=== PATIENT | male | born 1950 | race Caucasian/White ===

== ENCOUNTER 2020-05-15 11:19 | Emergency (ER) | payer MEDICARE ==
[~2020-05-15] VITALS: Ht 174 cm; Wt 65.0 kg
[~2020-05-15 11:19] MED LIST: ACYCLOVIR400 MG PO; AMLODIPINE5 MG PO; CEPHALEXIN500 MG OR; HYDROCHLOR12.5 MG/CA PO; LORTAB5 PO; METHYLPRED4 MG PO; SIMVASTATIN10 MG PO; TRAZODONE50 MG PO
[2020-05-15] MEDS ORDERED: SPIRIVA HANDIH18 MCG (11:56)
[2020-05-15] MEDS ORDERED: ASPIRIN 81 LOW81 MG PO (11:57)
[2020-05-15] MEDS ORDERED: DEXAMETHASON2 MG PO (11:58)
[2020-05-15 12:07] LABS: IMMATURE GRANULOCYTES 0.6 % (0.0-5.0); MEAN CELL VOLUME 103.7 fL CALC (80.0-100.0); MEAN CORPUSCULAR HGB 34.2 pG CALC (26.0-32.0); NEUT# 6.84 thou/uL (1.82-7.42); RED BLOOD COUNT 4.06 mill/uL (4.70-6.10); RED CELL DISTRI WIDTH 14.2 % (11.5-15.5)
[2020-05-15 12:12] LABS: HEMATOCRIT 42.1 % (39.0-50.0); HEMOGLOBIN 13.9 g/dl (14.0-18.0)
[2020-05-15 12:23] LABS: ALKALINE PHOSPHATASE 60 u/l (38-126); BILIRUBIN, TOTAL 0.9 mg/dL (0.0-1.4); BUN 15 mg/dL (8-23); BUN/CREATININE RATIO 21 (12-20 (CALC)); CARBON DIOXIDE 30 mmol/l (22-30); CHLORIDE 102 mmol/l (95-108); CREATININE 0.7 mg/dL (0.7-1.3); GFR > 60 ML/MIN (>=60 (CALC)); GFR FOR AFR.AMER. > 60 ML/MIN (>=60 (CALC)); SGOT/AST 17 u/l (19-48); SODIUM 136 mmol/l (137-146)
[2020-05-15 12:25] LABS: ANION GAP 8 (6-22 (CALC)); POTASSIUM 3.5 mmol/l (3.5-5.1); TOTAL PROTEIN 6.7 g/dL (6.3-8.2)
[2020-05-15 13:32] LABS: URINE BILIRUBIN - DIPSTICK NEGATIVE (NEGATIVE); URINE BLOOD DIPSTICK NEGATIVE (NEGATIVE); URINE COLOR YELLOW; URINE GLUCOSE - DIPSTICK NEGATIVE (NEGATIVE); URINE KETONE NEGATIVE (NEGATIVE); URINE LEUK ESTERASE NEGATIVE (NEGATIVE); URINE NITRITE - DIPSTICK NEGATIVE (Negative); URINE PH 6.5 (4.5-8.0); URINE PROTEIN - DIPSTICK NEGATIVE (NEG-TRACE); URINE UROBILINOGEN - DIPSTICK 0.2 E.U./dL (0.2)
[2020-05-15 15:06] VITALS: BP 102/69
== END 2020-05-15 14:52 | disposition short-term general hospital (02) ==
LOC: ED 11:19
DX: I71.4 Abdominal aortic aneurysm, without rupture (principal); F03.90 Unspecified dementia, unspecified severity, without behavioral disturbance, psychotic disturbance, mood disturbance, and anxiety; I10 Essential (primary) hypertension; I25.10 Atherosclerotic heart disease of native coronary artery without angina pectoris; C90.00 Multiple myeloma not having achieved remission; F17.200 Nicotine dependence, unspecified, uncomplicated; Z20.828 Contact with and (suspected) exposure to other viral communicable diseases
CPT/HCPCS: Q9967

== ENCOUNTER 2020-05-24 08:41 | Emergency (ER) | payer OTHER, MEDICARE ==
[~2020-05-24] VITALS: Ht 174 cm; Wt 63.6 kg
[~2020-05-24 08:41] MED LIST changes: +ASPIRIN 81 LOW81 MG PO; +DEXAMETHASON2 MG PO; +SPIRIVA HANDIH18 MCG
[2020-05-24] MEDS ORDERED: BUSPAR5 M1 PO (08:56)
[2020-05-24] MEDS ORDERED: SPIRIVA RE1.25 MCG/A (08:57)
[2020-05-24] MEDS ORDERED: ZOCOR10 MG PO (08:57)
[2020-05-24 09:14] LABS: HEMATOCRIT 40.1 % (39.0-50.0); HEMOGLOBIN 13.1 g/dl (14.0-18.0); IMMATURE GRANULOCYTES 2.7 % (0.0-5.0); MEAN CELL VOLUME 105.8 fL CALC (80.0-100.0); MEAN CORPUSCULAR HGB 34.6 pG CALC (26.0-32.0); MEAN CORPUSCULAR HGB CONC 32.7 g/dL CAL (32.0-36.0); NEUT# 9.6 thou/uL (1.82-7.42); RED BLOOD COUNT 3.79 mill/uL (4.70-6.10); RED CELL DISTRI WIDTH 14.6 % (11.5-15.5)
[2020-05-24 09:31] LABS: ALBUMIN 3.8 g/dL (3.2-5.0); ALKALINE PHOSPHATASE 65 u/l (38-126); ANION GAP 10 (6-22 (CALC)); BILIRUBIN, TOTAL 0.7 mg/dL (0.0-1.4); BUN 18 mg/dL (8-23); BUN/CREATININE RATIO 29 (12-20 (CALC)); CARBON DIOXIDE 25 mmol/l (22-30); CHLORIDE 106 mmol/l (95-108); CREATININE 0.6 mg/dL (0.7-1.3); GFR > 60 ML/MIN (>=60 (CALC)); GFR FOR AFR.AMER. > 60 ML/MIN (>=60 (CALC)); POTASSIUM 4.1 mmol/l (3.5-5.1); SGOT/AST 17 u/l (19-48); SODIUM 137 mmol/l (137-146)
[2020-05-24 10:03] VITALS: BP 101/57
== END 2020-05-24 10:10 | disposition home or self-care (01) | DRG 948 ==
LOC: ED 08:41
PROVIDERS: Family Medicine
DX: R60.9 Edema, unspecified (principal); I10 Essential (primary) hypertension; F03.90 Unspecified dementia, unspecified severity, without behavioral disturbance, psychotic disturbance, mood disturbance, and anxiety; I25.10 Atherosclerotic heart disease of native coronary artery without angina pectoris; I71.4 Abdominal aortic aneurysm, without rupture; F17.210 Nicotine dependence, cigarettes, uncomplicated

== ENCOUNTER 2020-06-09 11:25 | Emergency (ER) | payer OTHER, MEDICARE ==
[~2020-06-09] VITALS: Ht 174 cm; Wt 72.7 kg
[~2020-06-09 11:25] MED LIST changes: +BUSPAR5 M1 PO; +SPIRIVA RE1.25 MCG/A; +ZOCOR10 MG PO
[2020-06-09] MEDS ORDERED: ACYCLOVIR400 MG PO (11:48)
[2020-06-09] MEDS ORDERED: LASIX20 MG PO (11:49)
[2020-06-09] MEDS ORDERED: REVLIMID PO (11:51)
[2020-06-09] MEDS ORDERED: KLOR-CON SPRIN10 MEQ PO (11:51)
[2020-06-09 12:33] LABS: HEMATOCRIT 42.3 % (39.0-50.0); HEMOGLOBIN 13.8 g/dl (14.0-18.0); IMMATURE GRANULOCYTES 0.3 % (0.0-5.0); MEAN CELL VOLUME 107.1 fL CALC (80.0-100.0); MEAN CORPUSCULAR HGB 34.9 pG CALC (26.0-32.0); MEAN CORPUSCULAR HGB CONC 32.6 g/dL CAL (32.0-36.0); NEUT# 5.54 thou/uL (1.82-7.42); RED BLOOD COUNT 3.95 mill/uL (4.70-6.10); RED CELL DISTRI WIDTH 14.4 % (11.5-15.5)
[2020-06-09 12:53] LABS: ALBUMIN 3.8 g/dL (3.2-5.0); ALKALINE PHOSPHATASE 62 u/l (38-126); ANION GAP 9 (6-22 (CALC)); BILIRUBIN, TOTAL 1.2 mg/dL (0.0-1.4); BUN 24 mg/dL (8-23); BUN/CREATININE RATIO 27 (12-20 (CALC)); CARBON DIOXIDE 29 mmol/l (22-30); CHLORIDE 102 mmol/l (95-108); CREATININE 0.9 mg/dL (0.7-1.3); GFR > 60 ML/MIN (>=60 (CALC)); GFR FOR AFR.AMER. > 60 ML/MIN (>=60 (CALC)); POTASSIUM 3.2 mmol/l (3.5-5.1); SGOT/AST 23 u/l (19-48); SODIUM 137 mmol/l (137-146); TOTAL PROTEIN 6.4 g/dL (6.3-8.2)
[2020-06-09 12:56] LABS: URINE BILIRUBIN - DIPSTICK NEGATIVE (NEGATIVE); URINE BLOOD DIPSTICK NEGATIVE (NEGATIVE); URINE COLOR YELLOW; URINE GLUCOSE - DIPSTICK NEGATIVE (NEGATIVE); URINE KETONE NEGATIVE (NEGATIVE); URINE LEUK ESTERASE NEGATIVE (NEGATIVE); URINE NITRITE - DIPSTICK NEGATIVE (Negative); URINE PROTEIN - DIPSTICK NEGATIVE (NEG-TRACE); URINE SPECIFIC GRAVITY 1.015; URINE UROBILINOGEN - DIPSTICK 0.2 E.U./dL (0.2)
[2020-06-09 13:04] LABS: MYOGLOBIN 32 ng/mL (0 - 121)
[2020-06-09 14:05] VITALS: BP 107/69
== END 2020-06-09 14:05 | disposition home or self-care (01) | DRG 884 ==
LOC: ED 11:25
PROVIDERS: Emergency Medicine
DX: F03.91 Unspecified dementia, unspecified severity, with behavioral disturbance (principal); I10 Essential (primary) hypertension; I25.10 Atherosclerotic heart disease of native coronary artery without angina pectoris; I71.4 Abdominal aortic aneurysm, without rupture; F17.200 Nicotine dependence, unspecified, uncomplicated; Z85.830 Personal history of malignant neoplasm of bone

== ENCOUNTER 2020-07-11 18:58 | Observation (INO) | payer OTHER, MEDICARE ==
[~2020-07-11] VITALS: Ht 175.3 cm; Wt 66.9 kg
[~2020-07-11 18:58] MED LIST changes: +KLOR-CON SPRIN10 MEQ PO; +LASIX20 MG PO; +REVLIMID PO
--- NOTE | 2020-07-11 18:58 | NUR ---
PT ARRIVED BY EMS AND IS ALERT BUT NOT ORIENTED.
--- NOTE | 2020-07-11 19:12 | NUR ---
SPOKE WITH PATIENT'S STEP DAUGHTER. SHE STATES TONIGHT THE PATIENT TOOK A ROPE AND WAS HEADED OUTSIDE TO HANG HIMSELF, SO FAMILY CALLED 911. INFORMED STEO DAUGHTER THAT HE IS CURRENTLY NOT TALKING TO STAFF. STEP DAUGHTER STATES HE NORMALLY CAN TALK AND WAS TALKING WITH EMS PRIOR TO LEAVING HOUSE. SHE STATES HE HAS HAD EPISODES SINCE THE BEGINNING OF THE YEAR OF HAVING TROUBLE GETTING HIS WORDS OUT AND GETTING FRUSTRATED. STATES HE AMBULATES WITHOUT ASSIST.
[2020-07-11 19:47] LABS: HEMATOCRIT 38.9 % (39.0-50.0); HEMOGLOBIN 12.5 g/dl (14.0-18.0); IMMATURE GRANULOCYTES 0.3 % (0.0-5.0); MEAN CELL VOLUME 111.1 fL CALC (80.0-100.0); MEAN CORPUSCULAR HGB 35.7 pG CALC (26.0-32.0); MEAN CORPUSCULAR HGB CONC 32.1 g/dL CAL (32.0-36.0); NEUT# 6.33 thou/uL (1.82-7.42); RED BLOOD COUNT 3.5 mill/uL (4.70-6.10); RED CELL DISTRI WIDTH 13.2 % (11.5-15.5)
[2020-07-11 19:53] LABS: GFR > 60 ML/MIN (>=60 (CALC)); GFR FOR AFR.AMER. > 60 ML/MIN (>=60 (CALC))
--- NOTE | 2020-07-11 20:00 | NUR ---
PULLING OFF WIRES DESPITE REMINDING CONSTANTLY
[2020-07-11 20:08] LABS: ACT PARTIAL THROMBO TIME 25.3 SECONDS (20.0-32.5); ALBUMIN 3.2 g/dL (3.2-5.0); ALKALINE PHOSPHATASE 56 u/l (38-126); ANION GAP 7 (6-22 (CALC)); BUN 14 mg/dL (8-23); BUN/CREATININE RATIO 20 (12-20 (CALC)); CARBON DIOXIDE 30 mmol/l (22-30); CHLORIDE 106 mmol/l (95-108); CREATININE 0.7 mg/dL (0.7-1.3); ETHYL ALCOHOL 0 mg/dl (0-30); GFR > 60 ML/MIN (>=60 (CALC)); GFR FOR AFR.AMER. > 60 ML/MIN (>=60 (CALC)); INTERNATIONAL NORMALIZED RATIO 1.1 RATIO (0.7-1.3); LIPASE 150 u/l (23-300); POTASSIUM 3.8 mmol/l (3.5-5.1); SGOT/AST 18 u/l (19-48); SODIUM 139 mmol/l (137-146); TOTAL PROTEIN 5.7 g/dL (6.3-8.2)
[2020-07-11 20:10] LABS: BILIRUBIN, TOTAL 0.5 mg/dL (0.0-1.4)
[2020-07-11 20:19] LABS: MYOGLOBIN 27 ng/mL (0 - 121)
--- NOTE | 2020-07-11 20:45 | NUR ---
SITTER AT BEDSIDE.
--- NOTE | 2020-07-11 21:30 | NUR ---
FAMILY AT BEDSIDE.
--- NOTE | 2020-07-11 22:06 | NUR ---
Admission Note Report Given to: YUMI MCKEE Transported by: Wheelchair X Stretcher Transported with: X Nurse Transporter X Patent IV O2 X Route Delivery Manager Location: X ICU [facility]
[2020-07-11 22:15] VITALS: BP 100/72
--- NOTE | 2020-07-11 22:15 | NUR ---
PATIENT ARRIVES VIA WHEELCHAIR ACCOMPANIED BY ER NURSE BANDAR. PT NEEDS REPETITIVE DIRECTIONS. PT WAS ABLE TO TRANSFER TO THE BED WITH STANDBY ASSIST AND REPETITIVE DIRECTION AND ASSURANCE. NIH PERFORMED AND PT DOES NOT THOROUGHLY FOLLOW ALL DIRECTIONS, UNABLE TO PERFORM ALL OF TEST. SCORED FOR WRONG MONTH AND AGE, PT IS ORIENTED TO HIS NAME AND ONLY. RAC IV X1 INTACT. AFEBRILE, BP WNL, SR ON TELEMETRY, O2 SAT 98% ON RA, NO SOB NOTED. SITTER AT BEDSIDE, PATIENT ABLE TO SWALLOW WATER WITHOUT DIFFICULTY, SANDWICH AND ALFRED RIINA PROVIDED.
[2020-07-11 22:45] VITALS: BP 113/75
--- NOTE | 2020-07-11 22:51 | NUR ---
NO STROKE ORDER SET PER DR HUA.
--- NOTE | 2020-07-11 23:11 | NUR ---
PT ABLE TO TOLERATE LOVENOX INJECTION. NS INFUSING AT 100 ML/HR.
--- NOTE | 2020-07-11 23:25 | NUR ---
PT BECOMES RESTLESS AND AGITATED AT TIMES, NOTIFIED DR HUA, NEW ORDER FOR ATIVAN 0.5 MG Q4H PRN FOR AGITATION.
[2020-07-12] VITALS (7 sets, daily range): BP systolic 99–134; BP diastolic 64–87
--- NOTE | 2020-07-12 03:00 | NUR ---
PATIENT RESTS WITH EYES CLOSED. NO ACUTE DISTRESS SHOWN. SITTER AT BEDSIDE.
--- NOTE | 2020-07-12 05:13 | NUR ---
PATIENT'S CALLED, WAS UPDATED ON CURRENT PATIENT STATUS. REPORTED HE HAD BEEN HALLUCINATING, ACCUSING HER SHE HAD A BOYFRIEND AND THAT HE WOULD YELL AT THE PILLOW, "YOU BETTER GET OUT OF HERE AND TAKE YOUR STUFF." ALSO REPORTED HE HAD BROKEN A PHONE. REPORTS HE HAS A "VIOLENT TEMPER." HE HAD BEEN BAKR ACTED 2 WEEKS AGO AND WAS SENT TO [facility] IN [employer]. IS TO BRING HIS CANCER MEDICATION THIS MORNING.
--- NOTE | 2020-07-12 05:41 | NUR ---
PATIENT RESTS WITH EYES CLOSED. NO ACUTE DISTRESS SHOWN.
--- NOTE | 2020-07-12 06:45 | NUR ---
REPORT RECEIVED FROM RAFI EASON. CARE ASSUMED.
--- NOTE | 2020-07-12 07:15 | NUR ---
PT RESTING IN BED WITH BLANKET OVER HEAD. ARISES TO VERBAL STIMULI. ASKED PATIENT IF WOULD TELL ME HIS NAME AND . PT STATES "NOPE". ASKED PT TO TAKE A DEEP BREATH FOR LUNG SOUND AUSCULTATION PT STATES "LEAVE ME ALONE". SITTER AT BEDSIDE. WILL CONTINUE TO MONITOR.
--- NOTE | 2020-07-12 08:13 | NUR ---
DR HUA AT BEDSIDE AT THIS TIME.
--- NOTE | 2020-07-12 08:18 | NUR ---
DR HUA ON PHONE WITH PT'S SPOUSE.
--- NOTE | 2020-07-12 10:00 | NUR ---
PT SITTING UP ON SIDE OF BED. PT WRAPS CARDIAC CORDS QND BP CORDS REPEATEDLY. PT IS ABLE TO STATE NAME AND . SITTER AT BEDSIDE WITH PATIENT.
--- NOTE | 2020-07-12 10:40 | NUR ---
[facility] CALLED AND STATED THEY NEEDED A NURSE TO NURSE REPORT. REPORT PROVIDED. THEN ASKED US TO FAX THE MEDICAL CLEARANCE. MEDICAL CLEARANCE FAXED.
--- NOTE | 2020-07-12 10:55 | NUR ---
[facility] PHONE UNIT STATING THAT THEY ARE DENYING THIS PATIENT DUE TO ITS A CHRONIC CONDITION AND WILL NEED RETIREMENT PLACEMENT. DR HUA AND CASE MANAGEMENT NOTIFIED.
--- NOTE | 2020-07-12 10:59 | NUR ---
URINE SAMPLE OBTAINED AND SENT TO LAB
[2020-07-12 11:11] LABS: URINE BILIRUBIN - DIPSTICK NEGATIVE (NEGATIVE); URINE BLOOD DIPSTICK NEGATIVE (NEGATIVE); URINE COLOR YELLOW; URINE GLUCOSE - DIPSTICK NEGATIVE (NEGATIVE); URINE KETONE NEGATIVE (NEGATIVE); URINE LEUK ESTERASE NEGATIVE (NEGATIVE); URINE NITRITE - DIPSTICK NEGATIVE (Negative); URINE PH 6.5 (4.5-8.0); URINE PROTEIN - DIPSTICK NEGATIVE (NEG-TRACE); URINE SPECIFIC GRAVITY 1.015; URINE UROBILINOGEN - DIPSTICK 0.2 E.U./dL (0.2)
--- NOTE | 2020-07-12 12:00 | NUR ---
PT SITTING UP ON SIDE OF BED EATING LUNCH. RESP ARE EVEN AND UNLABORED. NO DISTRESS NTOED. CALL LIGHT IN REACH. WILL CONTINUE TO MONITOR.
--- NOTE | 2020-07-12 13:22 | NUR ---
PT GIVEN ATIVAN IV FOR INCREASED AGITATION. PT REFUSING TO LAY DOWN WILL ONLY SIT ON EDGE OF BED. REORIENTATION UNSUCCESSFUL
--- NOTE | 2020-07-12 13:36 | NUR ---
PT ASSISTED BACK IN BED. PT DID ATTEMPT TO STRIKE STAFF.
--- NOTE | 2020-07-12 14:13 | NUR ---
PT CONTINUES TO PULL AND PICK AT NEUROPATHOLOGIST.
--- NOTE | 2020-07-12 14:20 | NUR ---
ORDERS RECEIVED FOR ZYPREXA 10MG IM STAT.
--- NOTE | 2020-07-12 14:40 | NUR ---
ZYPREXA 10MG GIVEN IM. PT TOLERAED WELL.
--- NOTE | 2020-07-12 15:15 | NUR ---
Justa ALANIS ON UNIT. PT CONTINUES TO STRIKE OUT AT STAFF. UNABLE TO REORIENT PT.
--- NOTE | 2020-07-12 15:34 | NUR ---
SPOUSE UPDATED THAT PT WAS PLACED IN RESTRAINTS. PT YELLING ALOUD CURRENTLY IN ROOM. TALKING TO SELF OR HAVING HALLUCINATIONS AND DISCUSSING SMOKING A CIGARETTE.
--- NOTE | 2020-07-12 16:00 | NUR ---
dr montalvo notified of continued agitation. new orders received. pt medicated per orders.
--- NOTE | 2020-07-12 18:05 | NUR ---
PT RESTING IN BED WITH EYES CLOSED. RESP ARE EVEN AND UNLABORE.D NO DISTRESS NOTED. PT DOES YELL OUT AT TIME AND PULLS AT RESTRAINTS. SITTER REMAINS AT BEDSIDE. WILL CONTINUE TO ONITOR
--- NOTE | 2020-07-12 19:15 | NUR ---
PATIENT RESTING WITH EYES CLOSED ON ROUNDS. FOUND BE INCONTINENT OF LARGE AMOUNT OF URINE. AWAKENS TO NAME. ATTEMPTED TO REMOVED SOOAKED CLOTHING AND PATIENT BECAME VERY AGITATED, BALLING UP FISTS AND YELLING OUT. SHORTS, UNDERSHORTS AND T SHIRT CUT OFF PATIENT.
--- NOTE | 2020-07-12 19:30 | NUR ---
COMPLETE BED BATH GIVEN AND LINENS CHANGED WITH 2 ASSISTS. BRIEF PLACED ON PATIENT.
--- NOTE | 2020-07-12 19:35 | NUR ---
RESTING WITH EYES CLOSED AFTER BATH AND LINEN CHANGE. RESP NON-LABORED. LUNGS CLEAR. PATIENT IN 4 PT RESTRAINTS. CMS ADEQUATE TO EXTREMITIES. VSS. SALINE LOCK IN RAC, SITE BENIGN. GARMENT CUTTER SHOWS SR. SHIFT ASSESSMENT COMPLETED. SIDE RAILS UP X3. SITTER IN CONSTANT ATTENDANCE AT BEDSIDE.
--- NOTE | 2020-07-12 20:43 | NUR ---
ATIVAN 0.5 MG IVP FOR RESTLESSNESS.
--- NOTE | 2020-07-12 21:00 | NUR ---
INCONTINENT AGAIN OF LARGE AMOUNHT OF URINE. CHUX AND BRIEF CHANGED. SKIN CARE GIVEN.
--- NOTE | 2020-07-12 22:15 | NUR ---
CHUX AND BRIEF CHANGED AGAIN FOR URINARY INCONTINENCE.
--- NOTE | 2020-07-12 23:45 | NUR ---
MEDICATED WITH ATIVAN 0.5 MG IVP FOR RESTLESSNESS. NO CHANGES FROM PREVIOUS ASSESSMENT. VSS. SR ON MONITOR.
[2020-07-13] VITALS (9 sets, daily range): BP systolic 90–126; BP diastolic 63–85
--- NOTE | 2020-07-13 00:45 | NUR ---
RESTING WITH EYES CLOSED AT THIS TIME. RESP NON-LABORED. SR ON MONITOR.
--- NOTE | 2020-07-13 04:00 | NUR ---
SLEEPS FOR LONG INTERVALS. VSS. RESP NON-LABORED. SR ON MONITOR.
--- NOTE | 2020-07-13 06:15 | NUR ---
PATIENT HARJEET PHONED IN FOR CONDITION UPDATE. -
--- NOTE | 2020-07-13 06:20 | NUR ---
INCONTINENT AGAIN OF LARGE AMOUNT OF URINE. CHUX CHANGED AND SMITA-CARE GIVEN. SR ON MONITOR.
--- NOTE | 2020-07-13 07:25 | NUR ---
PT OS RESTLESS NEEDING TO URINATE. PLACED URINAL WITH DEPEND IN PLACE
--- NOTE | 2020-07-13 07:30 | NUR ---
ASSESSMENT IS COMPLTED: IV SITE IS FREE FROM REDNESS OR EDEMA. HR IS REG,PULSES ARE STRONG X4,ABD IS SOFT WITH HYPO BS. [address] PT HAS BEEN MOVING HIS LEGS AND ARMS. WAS FIDGETTING. CONTNUE TO OBSERVE AND MONITOR.
--- NOTE | 2020-07-13 08:06 | NUR ---
DR HUA IN TO VISIT WITH PT. [facility] AND THE CONVERSATION WITH SPOUSE.
--- NOTE | 2020-07-13 08:15 | NUR ---
PT PULLING AT COVERS EXPLAINED TO RELAX, AND LEGS WERE COLD. GAVE A DRINK OF WATER TO PT.
--- NOTE | 2020-07-13 09:30 | NUR ---
MEDICATIONS GIVEN WITH MUCH ENCOURAGEMENT. ALSO CHANGED THE PAD WAS INCONTINENT OF YELLOW URINE.
--- NOTE | 2020-07-13 10:06 | NUR ---
RECIEVED REPORT FROM ANANT JOE. ASSUMED PT CARE.
--- NOTE | 2020-07-13 10:08 | NUR ---
SPOKE WITH TITUS IN CASE MANAGEMENT . HAVE BEEN WORKING ON CALLING PLACES FOR TRASFER. WILL INFORM STAFF. INFORMED OF SPOUSE CALLING LAST NIGHT AND WILL CALL CASE MANAGEMENT,
--- NOTE | 2020-07-13 11:59 | NUR ---
PT RESTING IN BED, REFUSED LUNCH AT THIS TIME, WILL TRY AGAIN. SITTER REMAINS AT BEDSIDE. NO DISTRESS NOTED AT THIS.WILL MONITOR.
--- NOTE | 2020-07-13 14:00 | NUR ---
PT REPOSITIONED, PT WAS INC OF URINE. GOOD PERICARE PROVIDED. WILL MONITOR.
--- NOTE | 2020-07-13 16:12 | NUR ---
PT REPOSITIONED, INC OF URINE, GOOD SMITA CARE PROVIDED, BARRIER CREAM APPLIED. NO DISTRESS NOTED. SITTER REMAINS AT BEDSIDE. WILL MONITOR.
--- NOTE | 2020-07-13 18:00 | NUR ---
PT RESTING IN BED, REQUESTED URINAL, 200 OP. PT HAS STARTED TALKING TO SELF. CALL LIGHT IN REACH. WILL MONITOR.
--- NOTE | 2020-07-13 18:43 | NUR ---
PT AGGITATED PULLING AT RESTRAINTS. HR ELEVATED. PT NOT FOLLOWING DIRECTIONS OR ABLE TO REDIRECT AT THIS TIME. MEDICATED WITH PRN ATIVAN. WILL CONTINUE TO MONITOR. PT REMAINS IN BILATERAL SOFT WRIST AND ANKLE RESTRAINTS. STRONG PULSES NOTED IN ALL EXTREMITIES. SITTER AT BEDSIDE.
--- NOTE | 2020-07-13 18:57 | NUR ---
REPORT FROM JOSE EASON. ASSUMED PT CARE.
--- NOTE | 2020-07-13 20:07 | NUR ---
PT INCONTINENT OF URINE. BRIEF CHANGED AND PERICARE PROVIDED. PT TOLERATED WELL. ASSESSMENT COMPLETE. PT RESTING IN BED. NO APPARENT DISTRESS NOTED. RESPIRATIONS EVEN AND UNLABORED. PT NO ABLE TO VERBALIZED NEEDS, SPEECH UNINTELLIGIBLE. BILATERAL SOFT WRIST AND ANKLE RESTRAINTS REMAIN IN PLACE. PULSES NOTED. PT CALM AT THIS TIME. WILL CONTINUE TO MONITOR.
--- NOTE | 2020-07-13 21:17 | NUR ---
PT MEDICATED ORDERED. NO APPARENT DISTRESS NOTED. PT COOPERATIVE AT THIS TIME. RACE AND SPORTS BOOK WRITER REMAINS AT BEDSIDE. WILL CONTINUE TO MONITOR.
--- NOTE | 2020-07-13 22:47 | NUR ---
PT INCONTINENT OF BLADDER. PERICARE PROVIDED AND BRIEF CHANGED AT THIS TIME. PT THREATENING TO HIT STAFF DURING PT CARE, REORIENTED AT THIS TIME. PT REPOSITIONED. BILATERAL SOFT WRIST AND ANKLE RESTRAINTS IN PLACE, GOOD PULSES NOTED. PT AWAKE WATCHING TV. WILL CONTINUE TO MONITOR.
[2020-07-14] VITALS (9 sets, daily range): BP systolic 93–128; BP diastolic 63–87
--- NOTE | 2020-07-14 00:45 | NUR ---
PT INCONTINENT OF BLADDER. PT COMBATIVE AND THREATENING TO HARM STAFF BALLING UP FIST ATTEMPTING TO STRIKE. CALM REASSURANCE PROVIDED WITHOUT EFFECT. NOT ABLE TO REDIRECT. SOFT RESTRAINTS REMAIN IN PLACE. WILL CONTINUE TO MONITOR.
--- NOTE | 2020-07-14 02:45 | NUR ---
PT APPEARS TO BE HAVING HALUCINATIONS, HAVING CONVERSATION WITH PEOPLE WHO ARE NOT PRESENT. NO APPARENT DISTRESS NOTED. VSS. PERIODICALLY PULLING AT RESTRAINTS. PT BECOMES DISGRUNTLED AND AGGITATED WHEN ATTEMPTED REORIENTATION. WILL CONTINUE TO MONITOR.
--- NOTE | 2020-07-14 04:06 | NUR ---
CORRECTIONAL CASE MANAGER IN ROOM TO OBTAIN LABS. PT COMBATIVE AND BELLIGERENT, PULLING AT RESTRAINTS ATTEMPTING TO STRIKE AT STAFF. NO ABLE TO REORIENTED AT THIS TIME.
[2020-07-14 04:34] LABS: HEMATOCRIT 44.6 % (39.0-50.0); HEMOGLOBIN 14.3 g/dl (14.0-18.0); MEAN CELL VOLUME 107.7 fL CALC (80.0-100.0); MEAN CORPUSCULAR HGB 34.5 pG CALC (26.0-32.0); MEAN CORPUSCULAR HGB CONC 32.1 g/dL CAL (32.0-36.0); RED BLOOD COUNT 4.14 mill/uL (4.70-6.10); RED CELL DISTRI WIDTH 13.1 % (11.5-15.5)
[2020-07-14 05:02] LABS: BUN 8 mg/dL (8-23); BUN/CREATININE RATIO 13 (12-20 (CALC)); CHLORIDE 110 mmol/l (95-108); CREATININE 0.6 mg/dL (0.7-1.3); GFR > 60 ML/MIN (>=60 (CALC)); GFR FOR AFR.AMER. > 60 ML/MIN (>=60 (CALC)); SODIUM 137 mmol/l (137-146)
[2020-07-14 05:04] LABS: ANION GAP 9 (6-22 (CALC)); CARBON DIOXIDE 23 mmol/l (22-30); POTASSIUM 4.7 mmol/l (3.5-5.1)
--- NOTE | 2020-07-14 05:10 | NUR ---
COMPLETE BED BATH AND LINEN CHANGE PROVIDED. PT TOLERATED WELL. MEDICATED PRIOR TO WITH IV ATIVAN. RESTRAINTS REMOVED FOR NURSING CARE, SKIN INTACT AND GOOD PULSES NOTED. LARGE AMOUNT OF BLADDER INCONTINENCE NOTED, BARRIER CREAM APPLIED. PT REPOSITIONED FOR COMFORT. VSS. NO APPARENT DISTRESS NOTED. WILL CONTINUE TO MONITOR.
--- NOTE | 2020-07-14 07:30 | NUR ---
ASSESSMENT IS COMPLETED: IV SITE IS FREE FROM REDNESS OR EDEMA. HR IS REG,PULSES ARE STRONG X4,ABD IS SOFT WITH ACTIVE BS, BREATH SOUNDS ARE CLEAR,BILATERALY. INCONTINENT OF URINE. 4PT SOFT RESTRAINTS IN USE. PT ABLE TO MOVE ARMS AND LEGS TO REPOSITION.
--- NOTE | 2020-07-14 08:15 | NUR ---
DR HUA IN TO VISIT WITH PT ABLE TO TALK WITH HIM PT NOT COGNITIVE.
--- NOTE | 2020-07-14 08:33 | NUR ---
CHANGING PT BRIEF HAS WHAT APPEARS TO BE A BLISTER ON HIS SCROTAL SAC DOES NOT APPEAR TENDER TO TOUCH. PT TOLERATED WELL CONTINUE TO OSBERVE AND MONITOR.
--- NOTE | 2020-07-14 09:54 | NUR ---
PT ABLE TO TAKE MEDICATIONS WITHOUT ANY PROBLEMS
--- NOTE | 2020-07-14 10:28 | NUR ---
PT IS RESTING WITH EYES CLOSED
--- NOTE | 2020-07-14 11:30 | NUR ---
PT IS RESTING IN BED WITH NO DISTRESS NOTED IV SITE IS FREE FROOM REDNESS OR EDEMA. URINAL IS WITH PT. CONTINUE TO OBSERVE AND MONITOR.
--- NOTE | 2020-07-14 12:35 | NUR ---
PT IS RESTING IN BED , FAMILY CALLING TO INQUIRE. INFORMED BY [facility] CASE MANAGEMENT THAT THEY HAVE A POTENTIAL. CONTINUE TO OBSERVE AND MONITOR
--- NOTE | 2020-07-14 13:27 | NUR ---
PT IS RESTIGN IN BED WITH NO DISTRESS NOTED. IV SITE IS FREE FROM REDNESS OR EDEMA.
--- NOTE | 2020-07-14 13:50 | NUR ---
LARGE INCONTINENCE OF URINE. CLEAR.
--- NOTE | 2020-07-14 15:05 | NUR ---
NOT WANTING TO TAKE MEDICATION AT [facility]. SPIT PILLS AND WATER OUT.
--- NOTE | 2020-07-14 15:30 | NUR ---
PT IS RESTING NOW NO DISTRESS NOTED. IV SITE IS FREE FROM REDNESS OR EDEMA.,
--- NOTE | 2020-07-14 16:09 | NUR ---
LINO FROM CASE MANAGEMENT IS ATTEMPTING TO SEND RECORDS TO [place].
--- NOTE | 2020-07-14 16:20 | NUR ---
WOKE UP WANTING WATER AND "TO PEE" PLACED URINAL ENCOURAING TO URINATE.
--- NOTE | 2020-07-14 16:35 | NUR ---
RESTING WITH EYES CLOSED
--- NOTE | 2020-07-14 16:53 | NUR ---
SPOUSE CALLED AND WAS SENT TO CASE MANAGEMENT INQUIRING ABOUT PLACEMENT
--- NOTE | 2020-07-14 17:29 | NUR ---
ENCOURAGING PT TO USE THE URINAL. WANT TO GO TO THE BATHROOM. REMAINS RESTRAINED. TOLD STAFF" GET OUT OF MY PANTS" ATEMPTED TO TAKE URINAL AWAY. WILL LEAVE IN PLACE.,
--- NOTE | 2020-07-14 17:52 | NUR ---
EXPLAINING THAT PATIENT CANNOT GO INTO THE BATHROOM. NEDS TO USE THE URINAL. WANTS TO BE ARGUMENTATIVE,
--- NOTE | 2020-07-14 18:05 | NUR ---
PT USED THE URINAL 200CC YELLOW URINE.
--- NOTE | 2020-07-14 18:19 | NUR ---
TOOK 1 HEART LEAD OFF REFUSING TO LET US PUT IT BACK ON.,
--- NOTE | 2020-07-14 19:00 | NUR ---
REPORT RECEIVED FROM Roberto RODRIGUEZ LPN, CARE OF PT ASSUMED AT THIS TIME. PT RESTING IN BED, EYES CLOSED, RESPIRATIONS REGULAR AND UNLABORED, NO APPARENT DISTRESS. APPEARS TO BE SLEEPING COMFORTABLY. RESTRAINTS INTACT. SITTER AT BEDSIDE.
--- NOTE | 2020-07-14 19:50 | NUR ---
PT AWAKE AND AGITATED. TRYING TO GET OUT OF BED. PULLING AT MONITOR WIRES. PT RE-ORIENTED AND MEDICATED WITH PRN ATIVAN, SEE E-MAR.
--- NOTE | 2020-07-14 20:15 | NUR ---
PT LARA, REPORTS HEADACHE 03/02. PRN TYLENOL ADMINISTERED WITH SCHEDULED MEDICATIONS, SEE E-MAR. PHYSICAL ASSESMENT COMPLETE.
--- NOTE | 2020-07-14 21:30 | NUR ---
PT AWAKE, ATTEMPTING TO GET OUT OF BED. SITTER IS ABLE TO RE-ORIENTAND CALM PT.
--- NOTE | 2020-07-14 23:41 | NUR ---
PT BECOMING AGITATED, PRN ATIVAN ADMINISTERED. SEE E-MAR.
[2020-07-15] VITALS (10 sets, daily range): BP systolic 86–166; BP diastolic 58–93
--- NOTE | 2020-07-15 02:00 | NUR ---
PT APPEARS TO BE SLEEPING COMFORTABLY, EYES CLOSED, RESPIRATIONS REGULAR AND UNLABORED, NO APPARENT DISTRESS.
--- NOTE | 2020-07-15 04:40 | NUR ---
PT APPEARS TO BE SLEEPING COMFORTABLY, EYES CLOSED, RESPIRATIONS REGULAR AND UNLABORED, NO APPARENT DISTRESS.
--- NOTE | 2020-07-15 06:18 | NUR ---
PT APPEARS TO BE SLEEPING COMFORTABLY, EYES CLOSED, RESPIRATIONS REGULAR AND UNLABORED, NO APPARENT DISTRESS.
--- NOTE | 2020-07-15 08:00 | NUR ---
PATIENT ALERT, ORIENTED TO SELF, DENIED THOUGHT TO HARM SELF. SITTER AT BEDSIDE, PATIENT REQUIRED ART THERAPIST WITH FEEDING. RELEASED ANKEL RESTRAINTS. WILL CONTINUE TO MONITOR FOR SAFETY.
--- NOTE | 2020-07-15 10:30 | NUR ---
COMPLETE BED BATH PROVIDED BY YUMI CISSE AND MISBAH. NEW LINEN AND GOWN PROVIDED. PT TOLERATED WELL. DOMINIC ASSISTED PT WITH BRUSHING TEETH. ALL SAFETY PRECAUTIONS REMAINS IN PLACE WITH CALL LIGHT IN REACH AND SITTER AT BEDSIDE AND RETRAINTS APPLIED. WILL CONTINUE TO MONITOR
--- NOTE | 2020-07-15 11:33 | NUR ---
1000 PATIENT C/O NECK PAIN. NECK REPOSITIONED, TYLENOL GIVEN AND BATH GIVEN. PATIENT ALERT TO PERSON, REORIENTED TO PLACE AND TIME. SITTER AT BEDSIDE. WILL CONTINUE TO MONITOR FOR SAFETY.
--- NOTE | 2020-07-15 13:05 | NUR ---
ATTEMPTED TO RELEASE RESTRAINTS, PATIENT TRYING TO CLIMB OOB, CONFUSED REORIENTED TO PLACE AND TIME. PATIENT BECAME MORE AGGITATED, REAPPLIED RESTRAINTS
--- NOTE | 2020-07-15 15:22 | NUR ---
MEDS CRUSHED IN PUDDIN, ATTEMPTED TO GIVE PATIENT HIS MEDICATION, PT REFUSED, STATED THAT HE WAS GOING TO CALL THE POLICE. PATIENT TRYING TO MOVE WRITTER'S HANDS OUT OF THE WAY. PT REORIENTED TO PLACE AND TIME. WILL CONTINUE TO MONITOR FOR SAFETY
--- NOTE | 2020-07-15 18:31 | NUR ---
Pt alert to self, pt having conversation with self. Assisted pt with meals. meds given crushed, also this morning blood pressure meds not given because of low pressure. Pt incontinent of bladder, no bowel movement today. Bilateral wrist restraint continued for safety. Patient tries to climb oob. will contine to monitor for safety
--- NOTE | 2020-07-15 20:00 | NUR ---
AWAKE ON ROUNDS. PATIENT SPEECH IS CLEAR BUT INAPPROPRIATE RESPONSES TO QUESTIONS. ASKED PATIENT WHO PRESIDENT IS AND HE STATED, "HE'S AN IDIOT." RESP NON-LABORED. LUNGS CLEAR. SHIFT ASSESSMENT COMPLETED. SOFT WRIST RESTRAINTS IN PLACE. RELEASED AND REAPPLIED. PATIENT EASILY AGGITATED. WMOTIONAL SUPPPORT AND REASSURANCE PROVIDED. MONITOR SR-ST.
--- NOTE | 2020-07-15 20:35 | NUR ---
PATIENT ASKED TO GET UP TO BSC-WHILE RESTRAINTS RELEASED TO HELP PATIENT OOB WITH TWO PERSON ASSIST, PATIENT BECAME AGGRESSIVE. FLAILING ARMS AND BALLING UP FISTS. STATES, "I'LL KICK YOUR ASS." IMMEDIATELY RETURNED TO BED. KICKING LEGS UP IN AIR AND YELLING OUT. 4 POINT RESTRAINTS REAPPLIED.
--- NOTE | 2020-07-15 20:43 | NUR ---
MEDICATED WITH ATIVAN 0.5 MG IVP FOR AGGITATION.
--- NOTE | 2020-07-15 22:00 | NUR ---
RESTING CALMLY AT THIS TIME.
[2020-07-16] VITALS: BP 117/85
--- NOTE | 2020-07-16 | NUR ---
VSS. SR ON MONITOR HR 90'S. FIDGETY AT TIMES.
--- NOTE | 2020-07-16 02:00 | NUR ---
DOZES FOR INTERVALS.
[2020-07-16 04:00] VITALS: BP 109/74
--- NOTE | 2020-07-16 06:00 | NUR ---
AWAKE, A LITTLE MORE COOPERATIVE THIS MORNING. INCONTINENT OF LARGE AMOUNT OF URINE. COMPLETE BED BATH AND LINENS CHANGE. ANKLE RESTRAINTS RELEASED. PATIENT ASSISTS WITH REPOSITIONING IN BED. OFFERED PO FLUIDS. MONITOR SR. DSG TO SKIN TEAR ON SHORTY CHANGED-XEROFORM COVERED WITH TEGADERM, SECURED WITH MILEY APPLIED TO SITE.
--- NOTE | 2020-07-16 06:58 | NUR ---
REPORT RECEIVED FROM CAP SIZER, PT RESTING ON BED, WHEN WENT INTO EXAM PT, HE STATED JUST LEAVE ME ALONE, I WANT TO SLEEP, I AM FEELING FINE. LUNGS CLEAR.
[2020-07-16 07:02] VITALS: BP 110/78
--- NOTE | 2020-07-16 08:50 | NUR ---
PT IS ALERT TO PERSON ONLY, MUMBLING ANSWERS, AND RANDOMLY TALKING ABOUT DIFFERENT SUBJECTS. PT WILL BE SLIGHTLY AGETATIVE AND THEN CALM DOWN. AT THIS TIME, PT HAS MARK WRIST RESTRAINTS OFF , SITTING UP IN BED, EATING BREAKFAST. STATES HE DOESNT LIKE ANY THING WE HAVE FOR HIM TO EAT, IT TASTES LIKE "SHIT"
[2020-07-16 09:05] VITALS: BP 103/78
--- NOTE | 2020-07-16 09:06 | NUR ---
DR. STEVEN AT BEDSIDE, NEW ORDER FOR RESTRAINTS WILL BE WRITTEN TODAY.
--- NOTE | 2020-07-16 10:00 | NUR ---
PT BECOMING AGITATED, TRIED TO REORIENT PT TO HOSPITAL, HE STATES HE JUST WANTS TO GO HOME, GAVE WARM BLANKET, SIPS OF WATER, PT REMAINS TRYING TO TAKE OFF MARK WRIST RESTRAINTS, PT BEGAN KICKING, PLACED LEGS UNDER BLANKET TO CALM HIM DOWN. ATIVAN WILL BE GIVEN.
--- NOTE | 2020-07-16 10:30 | NUR ---
PT REFUSING TO ALLOW BLOOD PRESSURE CUFF TO REMAIN ON, RIPPED IT OFF AND THREW IT ON THE FLOOR
--- NOTE | 2020-07-16 10:56 | NUR ---
PT RESTING QUIETLY AT THIS TIME, WRIST RESTRAINTS REMOVED, NO SKIN BREAKDOWN, WILL REPLACE IF PT BECOMES AGITATED AGAIN.
--- NOTE | 2020-07-16 13:31 | NUR ---
PT STATES WAS HAVING SOME RIGHT SIDED NECK/JAW PAIN, THINKS IT IS BROKEN, ASKED IF HE WANTED SOME TYLENOL AND HE SAID YES.
--- NOTE | 2020-07-16 14:50 | NUR ---
PT REFUSING TO TAKE MEDICATIONS, I WAS TURNING AROUND TO GO PT GRABBED MY RIGHT FOREARM AND WOULD NOT LET GO, SQUEEZING AND TELLING ME THAT I WAS NOT GOING TO BREAK INTO HIS HOUSE AND HE WOULD HAVE TO HURT ME IF I DID.
--- NOTE | 2020-07-16 15:47 | NUR ---
PT RESTING AT THIS TIME ON BED WITH MARK WRIST RESTRAINTS ON. PT TORE OFF MONITER ON SIDE OF BED, IF YOU COME NEAR HIM HE STARTED KICKING AND HITTING.
--- NOTE | 2020-07-16 16:01 | NUR ---
PT REFUSING NURSE TO ALLOW TO PUT BLOOD PRESSURE CUFF ON OR PULSE OX, STATES WE ARE ALL TRYING TO KILL HIM AND HE WONT ALLOW THAT TO HAPPEN
--- NOTE | 2020-07-16 16:31 | NUR ---
WARM BLANKET GIVEN AND PT RESTING QUIETLY AT THIS TIME.
--- NOTE | 2020-07-16 16:59 | NUR ---
PT RESTING QUIETLY ON BED, RESTRAINTS REMOVED FROM MARK WRISTS WHILE SLEEPING. HEART RATE NORMAL.
--- NOTE | 2020-07-16 17:28 | NUR ---
PT SLEEPING AT THIS TIME, AWAKENS WITH VERBAL STIMULI
--- NOTE | 2020-07-16 19:30 | NUR ---
PATIENT CONFUSED AND MORE AGITATED TONIGHT THAN LAST NIGHT. PULLING AGAINST RESTRAINTS. KICKING LEGS UP IN THE AIR. TALKING TO HIMSELF, YELLING OUT AND SWEARING. RESP NON-LABORED. SALINE LOCK IN RAC, SITE BENIGN. SMALL BUSINESS SALES REPRESENTATIVE SHOWS SR-ST. SHIFT ASSESSMENT COMPLETED. PATIENT REMAINS IN BILATERAL WRIST RESTRAINTS WITH ADEQUATE CMS.
[2020-07-16 20:00] VITALS: BP 111/83
--- NOTE | 2020-07-16 21:15 | NUR ---
ATIVAN 0.5 MG IVP ORDERED FOR RESTLESSNESS/AGGITATION. PATIENT REMAINS IN WRIST RESTRAINTS, STILL ABLE TO REPEATEDLY REMOVE SUPERVISOR BROODER [employer]ARM. MONITOR LEFT OFF OF PATIENT AT THIS TIME.
--- NOTE | 2020-07-16 22:00 | NUR ---
SLT LESS AGITATED SINCE BEING MEDICATED.
[2020-07-17] VITALS (8 sets, daily range): BP systolic 102–135; BP diastolic 56–89
--- NOTE | 2020-07-17 | NUR ---
PATIENT INCONTINENT OF URINE. LINENES CHANGED, BRIEF APPLIED. PATIENT COOPERATIVE WITH CARE ASSISTS WITH TURNING SIDE TO SIDE.
--- NOTE | 2020-07-17 02:00 | NUR ---
RESTING CALMLY AND QUIETLY AT THIS TIME.
--- NOTE | 2020-07-17 04:00 | NUR ---
RESTING QUIETLY AT THIS TIME. RESP NON-LABORED. HAS REFUSED TO WEAR ZOO CARETAKER TONIGHT.
[2020-07-17 05:57] LABS: HEMATOCRIT 43.7 % (39.0-50.0); HEMOGLOBIN 14.7 g/dl (14.0-18.0); MEAN CELL VOLUME 105.8 fL CALC (80.0-100.0); MEAN CORPUSCULAR HGB 35.6 pG CALC (26.0-32.0); MEAN CORPUSCULAR HGB CONC 33.6 g/dL CAL (32.0-36.0); RED BLOOD COUNT 4.13 mill/uL (4.70-6.10); RED CELL DISTRI WIDTH 12.8 % (11.5-15.5)
--- NOTE | 2020-07-17 06:00 | NUR ---
CALM AND RESTFUL AT THIS TIME. HAS SLEPT ON AND OFF TONIGHT FOR SHORT INTERVALS.
[2020-07-17 06:03] LABS: ALBUMIN 3.7 g/dL (3.2-5.0); ALKALINE PHOSPHATASE 60 u/l (38-126); BUN 13 mg/dL (8-23); BUN/CREATININE RATIO 21 (12-20 (CALC)); CHLORIDE 103 mmol/l (95-108); CREATININE 0.6 mg/dL (0.7-1.3); GFR > 60 ML/MIN (>=60 (CALC)); GFR FOR AFR.AMER. > 60 ML/MIN (>=60 (CALC)); SGOT/AST 20 u/l (19-48); SODIUM 140 mmol/l (137-146); TOTAL PROTEIN 6.6 g/dL (6.3-8.2)
[2020-07-17 06:07] LABS: ANION GAP 12 (6-22 (CALC)); CARBON DIOXIDE 29 mmol/l (22-30); POTASSIUM 3.7 mmol/l (3.5-5.1)
--- NOTE | 2020-07-17 07:02 | NUR ---
PT REMAINS THE SAME YESTERDAY,CONFUSED, AGITATED, HAS ALL OF HIS CLOTHES OFF AND ONTO THE FLOOR, PULLING AT THE CARDIAC MONITER.
--- NOTE | 2020-07-17 08:45 | NUR ---
DR POOL AT BEDSIDE.
--- NOTE | 2020-07-17 09:25 | NUR ---
PT REFUSING TO TAKE MEDICATIONS, CRUSHED PILLS UP AND SQUIRTED THEM INTO PTS MOUTH, PT SWALLOWED MOST OF THEM, BUT SPIT SOME OF IT OUT AT ME , AND TOLD ME I WAS NOT ALLOWED TO GO BACK INTO HIS ROOM HANANE
--- NOTE | 2020-07-17 11:48 | NUR ---
PT REMOVED GOWN AGAIN, TRYING TO GET UP OUT OF BED, STATES HE NEEDS TO GET OUT OF THIS DAMN PLACE AND GET HOME, WE ARE TRYING TO KILL HIM
--- NOTE | 2020-07-17 12:13 | NUR ---
PT REFUSING TO EAT LUNCH, [place]
--- NOTE | 2020-07-17 13:47 | NUR ---
PT REFUSING TO KEEP A GOWN ON, KEEPS PULLING IT OFF AND KEEPS PULLING OFF SHEETS
--- NOTE | 2020-07-17 14:28 | NUR ---
PT REPORT CALLED TO MED SURG FOR CONTINUATION OF CARE.
--- NOTE | 2020-07-17 14:53 | NUR ---
PT TAKEN TO MED SURG PER STRETCHER AND RESTRAINTS
--- NOTE | 2020-07-17 14:55 | NUR ---
PT RECEIVED FROM ICU, PT CONFUSED IN BILATERAL WRISTS RESTRAINTS, PT CLOSE TO NURSES STATION, BED ALARM FOR SAFETY, NOTED BRUISING TO UPPER EXTREMITIES. CONTINUE TO MONITOR.
--- NOTE | 2020-07-17 16:02 | NUR ---
PT USING LEGS TO KICK AT BEDSIDE TABLE, PT INCOMPREHENSIBLE. CONFUSED, REMAINTS IN SOFT WRIST RESTRAINTS, BED ALARM FOR SAFETY, CALL LIGHT IN REACH,CONTINUE TO MONITOR.
--- NOTE | 2020-07-17 19:10 | NUR ---
Pt is calm, wrists bilateral restrained. Pt yells out as people pass by and clicking teeth at each person as they walk by, pulling gown and blankets off. Talking about where he is going to go.
--- NOTE | 2020-07-17 19:56 | NUR ---
Pt appears calm, talking about family and where he is going and who he is going to see. loc to self only, not or location/circumstance. Talking to people who are not in the room. Restraints in place x2 to bilateral wrists, circulation is good. No s/o distress. Pt clicking teeth and talking to people. Will continue to monitor.
--- NOTE | 2020-07-17 21:00 | NUR ---
PT SETTING BED ALARM OFF. PT LEGS HANGING OFF THE BED, PT MAKING THREATS TO LET HIM GO OR HE WILL HIT SOMEONE. HE PULLING ON RESTRAINTS AND APPEARS VERY AGITATED AT THIS TIME. DRINK OFFERED TO PT ALONG WITH SNACK. HE ASKED FOR COFFEE/PROVIDED. DEPUTY PROBATION OFFICER IN ASSISTING PT DRINK COFFEE.
--- NOTE | 2020-07-17 21:37 | NUR ---
PT MEDICATED FOR ANXIETY AND ANXIOUSNESS. PT SITTING ON EDGE OF THE BED PULLING ON RESTRAINTS, SAYING I WILL KILL SOMEBODY, I WANT YOU TO . PT APPEARS TO BE HALLUCINATING, TALKING ABOUT FIXING THINGS AND LOOKS OFF TOWARDS THE WALL AND TALKS TO SOMEONE.
--- NOTE | 2020-07-17 22:02 | NUR ---
PT LAYING BACK IN BED WITH LEGS IN THE AIR KICKING. SOFT RESTRAINTS TO WRISTS BILATERALLY.
--- NOTE | 2020-07-17 23:00 | NUR ---
ASSISTED PT TO EAT SIMONE CRACKERS AND DRINK COFFEE. ASSISTED PT LAYING BACK IN THE BED AND POSITIONED FOR COMFORT. BLANKETS REPLACED. PT IS SOMEWHAT CALMER, BUT STILL CONFUSED. SOFT RESTRAINTS MARK WRISTS.
--- NOTE | 2020-07-17 23:42 | NUR ---
PT LAYING IN BED KICKING FEET INTO THE AIR, BANGING ON BED RAIL, REMOVED GOWN AND BLANKETS. BED ALARM ON, CALL LIGHT NEAR AND RESTRAINTS BILAT SOFT TO WRISTS.
--- NOTE | 2020-07-18 00:34 | NUR ---
PT LAYING IN BED WITH LEGS IN THE AIR. I APPROACHED PT TO CHECK HIM, HE STARTED GROWLING SAYING "GET AWAY FROM ME, I WILL KICK YOU AND HIT YOU." PT ATTEMPTED TO HIT AT ME AND KICK ME. SOFT RESTRAINTS TO BILATERAL WRISTS.
--- NOTE | 2020-07-18 01:05 | NUR ---
PT SITTING UP ON SIDE OF THE BED, YELLS AT ME TO GET AWAY FROM HIM I APPROACH HIM. PT KICKING TOWARD JUMBO OPERATOR I APPROACH.
--- NOTE | 2020-07-18 01:35 | NUR ---
PT SITTING ON SIDE OF THE BED, ASSISTED PT DRINK PO FLUIDS, PROVIDED PT WITH CRACKERS, HE IS NOW FEEDING HIMSELF. APPEARS CALM AT THIS TIME, BUT MUMBLING INCOHERANT UTTERINGS. SOFT RESTRAINTS ON X2 BILAT
--- NOTE | 2020-07-18 02:30 | NUR ---
PT PROVIDED COMPLETE BED BATH AT THIS TIME AND CLEANED OF INCONTINENT URINE. BEDDING CHANGED AND NEW GOWN PLACED. PT TOLERATED WELL AND WAS CALM THROUGHOUT. UNABLE TO FOLLOW DIRECTIONS, BUT DID NOT BECOME TOO COMBATIVE. HIT AT NURSE AND AIDE ONCE THROUGHOUT BATH. SOCKS PLACED FOR COLD FEET AND BLANKETS PROVIDED. LIGHTS DOWN LOW AND BED ALARM ON. SOFT RESTRAINTS IN PLACE TO BILAT WRISTS
[2020-07-18 04:00] VITALS: BP 136/79
--- NOTE | 2020-07-18 04:00 | NUR ---
PT SLEEPING SOUNDLY. SHEET PULLED OVER HIS HEAD, NO S/O DISTRESS BUT LIGHT SONOROUS SOUNDS COMING FROM PT. SOFT RESTRAINTS BILAT WRISTS. BED ALARM ON
[2020-07-18 07:30] VITALS: BP 110/78
--- NOTE | 2020-07-18 07:32 | NUR ---
PT. WITH ENCEPHALOPATHY. WAS PHILIPPE ACTED DUE TO SUICIDAL IDEATION. COMBATIVE & CONFUSED. INCONTINENT OF BOWEL AND BLADDER. hAND V=FED, BUT AT TIMES NOT LUCID. RESTRAINTS CHECKED. WILL MONITOR.
[2020-07-18 08:00] VITALS: BP 110/81
--- NOTE | 2020-07-18 12:00 | NUR ---
PT. ALERT TO SELF ONLY. COMBATIVE AT TIMES. MOVES AROUND IN BED. ON RESTRAINT CHARTING. iNCONTINENT OF B&B. NO TELE. VS STABLE. WILL MONITOR.
[2020-07-18 15:25] VITALS: BP 98/73
[2020-07-18 18:30] VITALS: BP 110/82
--- NOTE | 2020-07-18 18:43 | NUR ---
PT. ALERT AND ORIENTED TO SELF ONLY. IN RESTRAINTS FOLLOWING PROTOCOL. INCONTINENT IF BOWEL AND BLADDER. MOVES AROUND IN BED. HAS BE FED MEALSON Q 2 HOUR RESTRAINT CHECKS. NO OPEN WOUNDS. WILL MONITOR.
--- NOTE | 2020-07-18 19:33 | NUR ---
RECEIVED REPORT FROM NURSE MARISOL, PATIENT RESTING IN BED, RESTRAINTS BILAT WRIST, BREATHING UNLABORED CALL LIGHT AT REACH.
--- NOTE | 2020-07-18 20:00 | NUR ---
PATIENT ALERT TO SELF ONLY WITH RESTRAINTS ON BILAT WRIST, SALINE LOCK ON RAC PATENT AND FLUSHES WELL, RES WAS RESTLESS AND AGITATED TALKING TO SOMEBODY, WILL CONTINUE TO MONITOR.
--- NOTE | 2020-07-19 | NUR ---
PATIENT COMBATIVE DURING DURING CARE, SKIN TEAR NOTED ON RT HAND DRESSING APPLIED CDI, CARE GIVEN WILL CONTINUE TO MONITOR.
--- NOTE | 2020-07-19 05:28 | NUR ---
PATIENT INCONTINEMT CARE PROVIDED, PATIENT COMBATIVE, TALKING TO SELFD, REDIRECTED EFFECTIVE FOR SOME TIME, RESTING IN BED, EVEN UNLABORED BREATHING.
[2020-07-19 08:00] VITALS: BP 106/73
--- NOTE | 2020-07-19 10:53 | NUR ---
PT IS SEEN AWAKE, INTERACTIVE, DELUSIONAL. PT DOES ANSWER SOME QUESTIONS AND LAUNCHES INTO OTHER SUBJECTS IN DISJOINTED MANNER. PT WAS PROVIDED MILK OF MAGNESIA AND PRUNE JUICE TODAY PER NO DOCUMENTED BM. WRIST RESTRAINTS CONTINUE TO BE NECESSARY TO KEEP PT IN BED AND FROM REMOVING IV.
[2020-07-19 14:50] VITALS: BP 113/72
--- NOTE | 2020-07-19 16:51 | NUR ---
PT IS NOW WEARING ONLY THE LEFT WRIST RESTRAINT TRIAL. HE IS NOT ATTEMPTING TO GET OOB OR LASHING OUT. PT REMAINS CALM IN THE BED AT THIS TIME TALKING WITH IMAGINARY FRIENDS.
[2020-07-19 19:10] VITALS: BP 125/79
--- NOTE | 2020-07-19 23:09 | NUR ---
REPORT RECEIVED FROM YUMI HARMON. PT RESTING IN BED SUPINE; ASSESSMENT AND VITALS COMPLETE ALERT AND ORIENTED. PT DENIES PAIN. RESPIRATIONS EVEN AND UNLABORED ON ROOM AIR AT REST. PT HAS LEFT WRIST RESTRAINT ON. STILL TRYS TO GET OUT OF BED AT EVERY UNWATCHED OPPORTUNITY. PT IS DELUSIONAL, SPEAKING TO IMMAGINARY FRIENDS. PT IS INCONTINENTN NOT UNDERSTANDING THE CONCEPT OF A BED URINAL. THIS NURSE SAT BEDSIDE THE PT UNTIL A SITTER ARRIVED AT [address] CALL LIGHT WITHIN REACH.
--- NOTE | 2020-07-20 00:24 | NUR ---
PT LAYING IN BED WITH EYES CLOSED, APPEARS TO BE SLEEPING, APPEARS COMFORTABLE AND IN NO DISTRESS. RESPIRATIONS REGULAR AND UNLABORED. ITEMS REMAIN WITHIN REACH, CALL RENEE REMAINS WITHIN REACH. BED REMAINS LOCKED AND IN LOW POSITION WITH BEDRAILS UP X2. SITTER BEDSIDE. LEFT ARM RESTRAINED. WILL CONTINUE TO MONITOR.
--- NOTE | 2020-07-20 04:23 | NUR ---
PT RESTING IN BED, NO SIGNS OF DISTRESS NOTED, RESP EVEN AND UNLABORED. PT VOICES NO NEEDS OR COMPLAINTS AT THIS TIME. PT HAS A LEFT WRIST RESTRAIT. SITTER IS BEDSIDE. CALL LIGHT IN REACH, CONTINUE TO MONITOR.
--- NOTE | 2020-07-20 05:57 | NUR ---
PATIENT REFUSED MORNING VITAL, NURSE NOTIFIED.
--- NOTE | 2020-07-20 05:57 | NUR ---
PT CONFUSED AND COMBATIVE; REFUSED VITALS. LEFT WRIST REMAINS RESTRAINED. WRIST HAS 2 FINGER CLEARANCE WITH GOOD BLOOD FLOW. SITTER AT BEDSIDE. CALL LIGHT IS WITHIN REACH.
[2020-07-20 07:45] VITALS: BP 109/62
--- NOTE | 2020-07-20 07:45 | NUR ---
PATIENT IN BED WITH LEFT WRIST RESTRAIN ON AT THIS TIME. LFT. WRIST CHECKED FOR CIRCULATION AND IS APPROPIATE AT THIS TIME. SITTER IN PLACE, PATIENT CONFUSED AT THIS TIME. RESPIRATION EASY AND UNLABORED.
--- NOTE | 2020-07-20 12:02 | NUR ---
PATIENT LYING IN BED LEFT WRIST REMAINS RESTRAINED AT THIS TIME. ALL SAFETY MEASURES ARE IN PLACE.
--- NOTE | 2020-07-20 13:25 | NUR ---
PATIENT DISLODGED IV ACCESS AT THIS TIME. ILIA CANCHOLA NOTIFIED AND GAVE ORDER TO LEAVE IV OUT AT THIS TIME. IV SITE FREE FROM S/S OF IV SITE INFECTION.
[2020-07-20 15:00] VITALS: BP 109/75
--- NOTE | 2020-07-20 15:59 | NUR ---
PATIENT IN BED, CONFUSED AND LEFT SOFT WRIST RETRAINT REMAINS IN PLACE. PATIENT REMAINS CONFUSED. SIDERAILS ARE UP X 3 CALL LIGHT WITHIN REACH AND BED ALARM ON AT THIS TIME.
--- NOTE | 2020-07-20 16:26 | NUR ---
PATIENT REMOVED LEFT WRIST RESTRAINT AT THIS TIME. BILATERAL WRIST RESTRAINTS PLACED.
--- NOTE | 2020-07-20 17:56 | NUR ---
DRESSING REMOVED TO RIGHT HAND DUE TO BLOOD TINGED SHADOWING,SITE CLEANSED WITH SALINE, ADAPTIC, TELFA AND KERLEX APPLIED;PHOTOGRAPH OBTAINED AND PLACED IN CHART;PT TOLERATED WELL;DENIES ANY ADDITIONAL NEEDS;FALL PRECAUTIONS REMAIN IN PLACE WITH BED IN THE LOWEST POSITION AND CALL LIGHT IN REACH;WILL CONTINUE TO MONITOR
[2020-07-20 18:44] VITALS: BP 111/72
[2020-07-20 18:47] VITALS: BP 156/68
--- NOTE | 2020-07-20 20:04 | NUR ---
REPORT RECEIVED FROM NURSE. PT RESTING IN BED SUPINE; ASSESSMENT AND VITALS COMPLETE ALERT AND ORIENTED. PT DENIES PAIN. PT BILATERALLY RESTRAINED; WITH GOOD CIRCULATION. RESPIRATIONS EVEN AND UNLABORED ON ROOM AIR AT REST. PT ENCOURAGED TO VERBALIZE CONCERNS. SAFETY MEASURES IN PLACE. CALL LIGHT WITHIN REACH.
--- NOTE | 2020-07-21 00:05 | NUR ---
PT LAYING IN BED WITH EYES CLOSED, APPEARS TO BE SLEEPING, APPEARS COMFORTABLE AND IN NO DISTRESS. RESPIRATIONS REGULAR AND UNLABORED. ITEMS REMAIN WITHIN REACH, CALL RENEE REMAINS WITHIN REACH. BED REMAINS LOCKED AND IN LOW POSITION WITH BEDRAILS UP X2. WILL CONTINUE TO MONITOR.
--- NOTE | 2020-07-21 04:04 | NUR ---
PT AWAKE IN BED, NO SIGNS OF DISTRESS NOTED, RESP EVEN AND UNLABORED. PT IN WRIST RESTRAITS; CIRCULATION CONFIRMED WITH GOOD BLOOD FLOW. PT VOICES NO NEEDS OR COMPLAINTS AT THIS TIME. CALL LIGHT IN REACH,CONTINUE TO MONITOR.
[2020-07-21 04:13] VITALS: BP 109/70
[2020-07-21 07:40] VITALS: BP 111/75
--- NOTE | 2020-07-21 07:40 | NUR ---
PATEINT IN BED AWAKE WITH EYES OPEN PATIENT REMAINS CONFUSED AT THIS TIME AND BILATERAL WRIST RESTRAINTS ARE STILL INPLACE. RESTRAINTS REMOVED FOR RANGE OF MOTION AND TO CHECK CIRCULATION AND REAPPLIED AT THIS TIME. WHEN ASKED ABOUT PAIN PATIENT STATES NO. ALL SAFETY MEASURES ARE IN PLACE AT THIS TIME SIDERAILS ARE UP X 3 AND NO SITTER AT BEDSIDE. NURSE ASSESSMENT DONE SEE INTERVENTIONS.
--- NOTE | 2020-07-21 08:20 | NUR ---
PHYSICIAN (DR. HUA) AND ARCHITECTURAL ASSOCIATE IN TO VISIT PATIENT AT THIS TIME.
--- NOTE | 2020-07-21 11:40 | NUR ---
PATIENT AWAKE IN BED. INCONTIENT OF URINE, PATIENT CLEANED AND BED LINEN CHANGED, BILATERAL WRIST RESTRAINTS REMOVED FOR ROM EXERCISE AND REPLACED IMMEDIATELY. NO S/S OF CIRCULATION ISSUES AT THIS TIME. ALL SAFETY MEASURES IN PLACE SIDERAILS UP X3 PATIENT REMAINS CONFUSED ONLY ORIENTED TO SELF. CALL LIGHT WITHIN REACH.
--- NOTE | 2020-07-21 13:52 | NUR ---
PATIENT IN BED REMAINS CONFUSED, RESTRAINTS REMAIN ON BILATTERLY AT THIS TIME. ALL SAFETY MEASURES ARE IN PLACE AT THIS TIME. NO OTHER NEEDS VOICED.
[2020-07-21 15:34] VITALS: BP 107/74
--- NOTE | 2020-07-21 16:00 | NUR ---
PATIENT IN BED AWAKE AND CONFUSED AT THIS TIME. BILATERAL SOFT WRIST RESTRAINTS REMOVE FOR ROM AND CIRCULATION CHECK AND REPLACED BACK ON. ALL SAFETY MEASURES ARE IN PLACE. SIDERAILS UP X3. INCONTINENT OF URINE PATIENT CLEANED AND PAD CHANGED AND CLEAN GOWN APPLIED.
--- NOTE | 2020-07-21 19:40 | NUR ---
PT IN BED W/BILAT RESTRAINTS TO WRISTS. PT TALKING AND HAVING CONVERSATIONS WITH HIMSELF. NO OTHER PERSON IN THE ROOM AND HE APPEARS TO HALLUCINATE AND BE TALKING TO PEOPLE WHO ARE NOT PRESENT TO DEVELOPMENTAL MATHEMATICS INSTRUCTOR. BED ALARM ON AND CALL LIGHT W/IN REACH.
[2020-07-21 20:00] VITALS: BP 107/75
--- NOTE | 2020-07-21 20:11 | NUR ---
PT MEDICATED ORDERS PROVIDE. NO S/O DISTRESS. PT JUST TALKING ABOUT PEOPLE. BED ALARM ON AND CALL LIGHT W/IN REACH. RESTRAINTS X2 MARK WRISTS
--- NOTE | 2020-07-21 21:40 | NUR ---
PT UPRIGHT IN BED WITH BILAT SOFT RESTRAINTS TO WRISTS. ASSISTED PT USING URINAL AND DRINKING FLUIDS. PT COOPERATED, BUT IS TRYING TO GET OUT OF THE BED. PT TALKING ABOUT PEOPLE NOT IN THE ROOM AND APPEARS TO BE HALLUCINATING TELLING US, "SEE IT? RIGHT THERE" APPEARS TO BE POINTING TO AND REFERRING TO OBJECTS AND PEOPLE THAT ARE NOT THERE.
--- NOTE | 2020-07-21 23:31 | NUR ---
PT APPEARS CALM IN BED WITH EYES OPEN. NO S/O DISTRESS. HE IS LOOKING AT THE TV. BED ALARM ON, CALL LIGHT AT SIDE, OFFERED PT PO FLUIDS, REFUSED. SOFT RESTRAINTS TO BILAT WRISTS, CIRCULATION APPEARS INTACT.
--- NOTE | 2020-07-22 01:18 | NUR ---
PT AWAKE AND AGITATED, YELLING OUT. PT REPOSITIONED AND RESTRAINTS REPLACED TO BUE. PT HALLUCINATING.
--- NOTE | 2020-07-22 02:48 | NUR ---
MARSHMALLOW MACHINE OPERATOR'S IN W/PT PROVIDING SMITA-CARE AND CLEANING OF INCONTENENT URINE. PT TOLERATED WELL, CONFUSED AND NOT FOLLOWING DIRECTIONS. RESTRAINTS REMOVED BRIEFLY FOR ROM AND TURNING. PT APPEARS TO BE HALLUCINATING.
--- NOTE | 2020-07-22 02:50 | NUR ---
PT SLEEPING AT THIS TIME, URINE COLLECTED FROM NEW URINAL AT THIS TIME. URINE IS CLEAR YELLOW. NO S/O DISTRESS NOTED. CALL LIGHT AT SIDE.
--- NOTE | 2020-07-22 03:32 | NUR ---
PT AWAKE AND POSITIONED IN BED FOR COMFORT. CLOTH RESTRAINTS REMOVED TEMPORARILY ONE AT A TIME FOR ROM AND POSITIONING. CIRCULATION REMAINS INTACT TO BUE. BANDAGES TO RFA ARE CDI. PT APPEARS TO BE HAVING VISUAL DISTURBANCES.
[2020-07-22 04:00] VITALS: BP 105/76
--- NOTE | 2020-07-22 05:30 | NUR ---
PT APPEARS CALM, WRIST RESTRAINTS ARE IN PLACE. ASSISTED PT TO DRINK COLD SODA, HE STOPPED AND STATED, "MMMMM THAT IS SO GOOD, REFRESHING."
--- NOTE | 2020-07-22 07:00 | NUR ---
SHIFT CHANGE RE[PRT, PT AWAKE AND ALERT, ORIENTED TO SELF ONLY, TALKATIVE BUT NON-SENSICAL, MARK SOFT RESTRAINTS IN PLACE AND RELEASED FOR SKIN CKECK, NO SIGN DISCOMFORT, CALL RENEE IN REACH.
[2020-07-22 07:27] VITALS: BP 116/77
--- NOTE | 2020-07-22 09:57 | NUR ---
MEDICAL TEAM ROUNDED AND ORDERED TO REMOVE RESTRAINTS AND HAVE SITTER FOR PSYCHE EVAL, RESTRAINTS REMOVED @ 0915 AND SITTER ASSIGNED TO ROOM, WILL CONTINUE TO MONITOR.
--- NOTE | 2020-07-22 10:27 | NUR ---
CONFUSED, COMBATIVE, ANXIOUS AND BELIGERANT AT THIS TIME, AWAITING PSYCH EVAL, MEDICAL TEAM INFORMED OF BEHAVIOR AND ADVISED TO RESTART RESTRAINTS IF CONDITION PERSISTS, VERBAL CUES EFFECTIVE AT THIS TIME AND PT IS SITTING ON SIDE OF BED.
--- NOTE | 2020-07-22 11:00 | NUR ---
ASSISTED OOB WITH MAX ASSIST OF 2 STAFF MEMBERS, GAIT VERY UNSTEADY, ASSISTED BACK TO BED AND BED ALARM ON.
[2020-07-22 14:52] VITALS: BP 119/84
--- NOTE | 2020-07-22 16:10 | NUR ---
PT RESTING CALMLY IN BED AT THIS TIME, SITTER AT BEDSIDE, ALARM ON.
--- NOTE | 2020-07-22 16:53 | NUR ---
ALEXANDRA FROM [facility] CALLED FOR REPORT, STATED HE HAS NOT BEEN FULLY ACCEPTED YET AND MORE INFORMATION IS NEEDED, CM IS WORKING ON PLACEMENT AT THIS TIME.
--- NOTE | 2020-07-22 17:45 | NUR ---
Discharge instructions given. Patient verbalizes understanding of same. Discharged in stable condition via Wheelchair to [facility] with *Other. All belongings sent with pt.
== END 2020-07-22 17:42 | disposition other institution (70) | DRG 57 ==
LOC: ED 18:58 → ICU 21:17 → MS2 07-17 09:00
PROVIDERS: ADMIT Internal Medicine; ATTEND Internal Medicine
DX: G30.9 Alzheimer's disease, unspecified (principal); F02.81 Dementia in other diseases classified elsewhere, unspecified severity, with behavioral disturbance; G93.49 Other encephalopathy; R45.851 Suicidal ideations; F06.8 Other specified mental disorders due to known physiological condition; R45.850 Homicidal ideations; F32.9 Major depressive disorder, single episode, unspecified; I10 Essential (primary) hypertension; I25.10 Atherosclerotic heart disease of native coronary artery without angina pectoris; I71.4 Abdominal aortic aneurysm, without rupture; E78.5 Hyperlipidemia, unspecified; F17.210 Nicotine dependence, cigarettes, uncomplicated; Z86.73 Personal history of transient ischemic attack (TIA), and cerebral infarction without residual deficits; Z78.1 Physical restraint status; Z85.830 Personal history of malignant neoplasm of bone; Z20.828 Contact with and (suspected) exposure to other viral communicable diseases
CPT/HCPCS: G0378; J1650; J2060; Q9967; S0166